=== PATIENT | male | born 1980 | race African-American/Black ===

== ENCOUNTER 2019-07-04 19:50 | Emergency (ER) | payer MEDICAID, OTHER ==
[2019-07-04 20:03] VITALS: BP 117/67
--- NOTE | 2019-07-04 20:29 | ER Document Report ---
ED General - General Stated Complaint: BUG BITE ON LEFT WRIST Time Seen by Provider: 07/04/19 20:23 Primary Care Provider: ADELFO HILL PA-C [Primary Care Provider] - Follow up as needed Notes: 38-year-old male presents with possible insect bite to his left wrist that he states happened on . Patient states that is gotten more swollen and painful over the past few days. Patient is unsure if he had a fever. Denies any nausea/vomiting, abdominal pain, chest pain, shortness of breath. TRAVEL OUTSIDE OF THE [place] IN LAST 30 DAYS: No - Related Data Allergies/Adverse Reactions: No Known Allergies Allergy (Verified 09/27/13 19:06) Past Medical History - Social History Smoking Status: Current Every Day Smoker Family History: CAD, DM Neurological Medical History: Reports: Hx Seizures - Immunizations Hx Diphtheria, Pertussis, Tetanus Vaccination: Yes Review of Systems - Review of Systems Notes: Constitutional: Negative for fever. HENT: Negative for sore throat. Eyes: Negative for visual changes. Cardiovascular: Negative for chest pain. Respiratory: Negative for shortness of breath. Gastrointestinal: Negative for abdominal pain, vomiting or diarrhea. Genitourinary: Negative for dysuria. Musculoskeletal: Negative for back pain. Skin: Positive for insect bite to left wrist.. Negative for rash. Neurological: Negative for headaches, weakness or numbness. 10 point ROS negative except as marked above and in HPI. Physical Exam - Vital signs Vitals: Temp Pulse Resp BP Pulse Ox 98.6 F 70 18 117/67 97 07/04/19 20:01 07/04/19 20:01 07/04/19 20:01 07/04/19 20:01 07/04/19 20:01 - Notes Notes: GENERAL: Well-appearing, well-nourished and in no acute distress. HEAD: Atraumatic, normocephalic. EYES: Pupils equal round and reactive to light, extraocular movements intact, sclera anicteric, conjunctiva are normal. ENT: TMs normal, nares patent, oropharynx clear without exudates. Moist mucous membranes. NECK: Normal range of motion, supple without lymphadenopathy or JVD. EXTREMITIES: Left lower leg amputation. Normal range of motion, no pitting or edema. No clubbing or cyanosis. NEUROLOGICAL: Cranial nerves II through XII grossly intact. Normal speech, normal gait. PSYCH: Normal mood, normal affect. SKIN: Cellulitis/2.5 cm abscess noticed with erythema to left medial wrist. Warm, Dry, normal turgor, no rashes or lesions noted. Course - Re-evaluation Re-evalutation: 07/04/19 nontoxic, well-appearing 38-year-old male presents with possible insect bite to left wrist. Approximately 2.5 cm abscess noted without fluctuance with erythema to left medial wrist. Radial pulse 2+. PE is otherwise unremarkable. Patient prescribed Keflex and given strict return precautions. Patient also given close follow-up with PCP. Patient voices understanding and agrees with plan of care. - Vital Signs Vital signs: Temp Pulse Resp BP Pulse Ox 98.6 F 70 18 117/67 97 07/04/19 20:01 07/04/19 20:01 07/04/19 20:01 07/04/19 20:01 07/04/19 20:01 Discharge - Discharge Clinical Impression: Cellulitis Qualifiers: Site of cellulitis: extremity Site of cellulitis of extremity: upper extremity Laterality: right Qualified Code(s): L03.113 - Cellulitis of right upper limb Condition: Stable Disposition: HOME, SELF-CARE Instructions: Cellulitis ([facility]) Additional Instructions: Please take antibiotics as prescribed and finish all doses even if you feel better. Please take ibuprofen as prescribed for pain/swelling. Use warm compresses as discussed. Follow-up with your primary care doctor in 2 to 3 days. Return immediately to ER if you start having any worsening symptoms, including spreading of redness, area becoming more swollen, increased pain, inability to move your wrist, fevers, or any other symptoms that are concerning to you. Prescriptions: Cephalexin Monohydrate [Keflex 500 mg Capsule] 500 mg PO Q6H 7 Days #28 capsule Ibuprofen [Motrin 800 mg Tablet] 800 mg PO Q8H PRN #30 tab PRN Reason: Referrals: ADELFO HILL PA-C [Primary Care Provider] - Follow up in 3-5 days
== END 2019-07-04 21:07 | disposition home or self-care (01) ==
LOC: ER 19:50
DX: L03.113 Cellulitis of right upper limb (principal); F17.200 Nicotine dependence, unspecified, uncomplicated

== ENCOUNTER 2019-07-07 13:50 | Emergency (ER) | payer OTHER ==
--- NOTE | 2019-07-07 14:24 | ER Document Report ---
HPI - HPI Time Seen by Provider: 07/07/19 14:15 Notes: Patient is a 38-year-old male who presents complaining of abscess infection to his left wrist that is been present for the past week. Patient is not sure how it started, but he has had redness and swelling since then. Patient was evaluat ed few days ago and was placed on Keflex and did not have an I&D performed at that time. Patient states that some redness has improved, but he continues to have swelling and he did notice drainage on 1 occasion. Denies drug allergies. No history of IV drug abuse or MRSA. Denies any headache, fever, neck pain, URI, sore throat, chest pain, palpitations, syncope, cough, shortness of breath, wheeze, dyspnea, abdominal pain, nausea/vomiting/diarrhea, urinary retention, dysuria, hematuria, numbness/tingling, muscle paralysis/weakness, or rash. - ROS Systems Reviewed and Negative: Yes All other systems reviewed and negative Past Medical History - Social History Smoking Status: Unknown if Ever Smoked Family History: CAD, DM Neurological Medical History: Reports: Hx Seizures - Immunizations Hx Diphtheria, Pertussis, Tetanus Vaccination: Yes Vertical Provider Document - CONSTITUTIONAL Agree With Documented VS: Yes Notes: PHYSICAL EXAMINATION: GENERAL: Well-appearing, well-nourished and in no acute distress. HEAD: Atraumatic, normocephalic. NECK: Normal range of motion, supple without lymphadenopathy. No midline tenderness. LUNGS: Breath sounds clear to auscultation bilaterally and equal. No wheezes rales or rhonchi. HEART: Regular rate and rhythm without murmurs, rubs, gallops. Musculoskeletal: Lt hand/wrist: + fluctuant, minimally erythemic area that is tender to palp to the left medial wrist area with fluctuance noted. No ecchymosis, deformity noted. N/V intact distal. FROM to passive/active at the wrist. Strength 5+/5 to internal control consultant. No other bony tenderness. Extremities: No cyanosis, clubbing, or edema b/l. Peripheral pulses 2+. Capillary refill less than 3 seconds. NEUROLOGICAL: Normal speech, normal gait. Normal sensory, motor exams otherwise unremarkable PSYCH: Normal mood, normal affect. SKIN: see above. No rash - INFECTION CONTROL TRAVEL OUTSIDE OF THE [place] IN LAST 30 DAYS: No Course - Re-evaluation Re-evalutation: 07/07/19 Patient is an afebrile, well-hydrated, 38-year-old male who presents to the emergency department with an abscess to the left wrist needing incision and drainage. Vitals are acceptable without significant tachycardia, tachypnea, or hypoxia. PE is otherwise unremarkable. Patient is nontoxic-appearing and is tolerating p.o. without difficulty. Incision and drainage was performed successfully without any complications and packing was placed. Wound dressing was placed and wound instructions reviewed. Wound culture was obtained. No further labs or imaging warranted. Low suspicion for any sepsis, meningitis, SJS, or other systemic emergent condition at this time. Patient to monitor symptoms for any acute changes and seek medical attention if so. We will re-rx keflex and add bactrim. Recheck with your PCM in 2-3 days. Consider consult with the general surgeon. Return to the ED with any worsening/concerning symptoms as reviewed. Patient is in agreement. - Vital Signs Vital signs: Temp Pulse Resp BP Pulse Ox 98.4 F 69 16 124/66 98 07/07/19 13:56 07/07/19 13:56 07/07/19 13:56 07/07/19 13:56 07/07/19 13:56 Procedures - Incision and Drainage Left Wrist Type: Simple Blade size: 11 I&D procedure: Iodoform packing placed, Sterile dressing applied Incision Method: Incision made by scalpel Amount/type of drainage: moderate purulent Discharge - Discharge Clinical Impression: Abscess Condition: Stable Disposition: HOME, SELF-CARE Instructions: Cephalexin ([facility]), Trimethoprim-Sulfa ([facility]), Post Incision and Drainage Additional Instructions: Do not shower or bathe for 24 hours. After 24 hours you may shower but no submersion of the wound under water. Keep the original dressing on the wound for 24 hours unless the drainage soaks through. Change the dressing daily thereafter and use a small amount of triple antibiotic ointment over the open wound. See your PCM in 2-3 days for recheck and continue direction for wound packing. Monitor for any signs of worsening pain or redness, streaks, and/or fever. Return to the ED if noticing any of the above symptoms or as needed. Take medications as directed. Prescriptions: Sulfamethoxazole/Trimethoprim [Bactrim Ds Tablet] 1 each PO BID #20 tablet Cephalexin Monohydrate [Keflex 500 mg Capsule] 500 mg PO TID #30 capsule Referrals: ADELFO HILL PA-C [Primary Care Provider] - Follow up as needed SHAY MERCADO MD [ACTIVE STAFF] - Follow up as needed
[2019-07-07 15:09] VITALS: BP 109/61
== END 2019-07-07 15:09 | disposition home or self-care (01) ==
LOC: ER 13:50
DX: L02.414 Cutaneous abscess of left upper limb (principal)
CPT/HCPCS: 87070; 87077; 87205

== ENCOUNTER → 2019-11-10 | Outpatient (CLI) | payer OTHER | LOC: OD 10:21 | PROVIDERS: ATTEND Otolaryngology | DX: J30.9 Allergic rhinitis, unspecified (principal) | CPT/HCPCS: 36415; 82785; 86003 ==